=== PATIENT | female | born 1955 | race Asian ===

== ENCOUNTER 2021-01-27 15:32 | Outpatient (CLI) | payer BC | END 2021-01-27 15:33 | disposition home or self-care (01) | LOC: CSHRAD 15:32 | PROVIDERS: ATTEND Family Medicine | DX: R05.3 Chronic cough (principal); R91.8 Other nonspecific abnormal finding of lung field | CPT/HCPCS: 71046 ==

== ENCOUNTER 2021-02-05 10:12 | Outpatient (CLI) | payer BC | END 2021-02-05 10:13 | disposition home or self-care (01) | LOC: CSHRAD 10:12 | PROVIDERS: ATTEND Family Medicine | DX: J18.9 Pneumonia, unspecified organism (principal) | CPT/HCPCS: 71046 ==

== ENCOUNTER 2021-03-02 15:39 | Outpatient (CLI) | payer BC | END 2021-03-02 15:40 | disposition home or self-care (01) | LOC: CSHRAD 15:39 | PROVIDERS: ATTEND Family Medicine | DX: R93.89 Abnormal findings on diagnostic imaging of other specified body structures (principal); R91.8 Other nonspecific abnormal finding of lung field | CPT/HCPCS: 71046 ==

== ENCOUNTER 2021-03-08 13:23 | Outpatient (CLI) | payer BC | END 2021-03-08 13:24 | disposition home or self-care (01) | LOC: CSHCT 13:23 | PROVIDERS: ATTEND Family Medicine | DX: R91.8 Other nonspecific abnormal finding of lung field (principal) | CPT/HCPCS: 71260; 82565 ==

== ENCOUNTER 2021-04-20 13:32 | Outpatient (CLI) | payer BC | END 2021-04-20 13:33 | disposition home or self-care (01) | LOC: CSHMRI 13:32 | PROVIDERS: ATTEND Internal Medicine Hematology & Oncology | DX: C34.81 Malignant neoplasm of overlapping sites of right bronchus and lung (principal) | CPT/HCPCS: 70553; 82565 ==

== ENCOUNTER 2021-05-05 15:04 | Outpatient (CLI) | payer BC | END 2021-05-05 15:05 | disposition home or self-care (01) | LOC: CSHEKG 15:04 | PROVIDERS: ATTEND Internal Medicine Hematology & Oncology | DX: Z01.818 Encounter for other preprocedural examination (principal) | CPT/HCPCS: 93005; 93010 ==

== ENCOUNTER 2022-03-08 08:56 | Outpatient (CLI) | payer BC ==
[2022-03-08] MEDS ORDERED: Iopamidol 300 61% 100 ML VIAL FS ONE (10:22)
== END 2022-03-08 08:57 | disposition home or self-care (01) ==
LOC: CSHCT 08:56
PROVIDERS: ATTEND Internal Medicine Hematology & Oncology
DX: C34.81 Malignant neoplasm of overlapping sites of right bronchus and lung (principal); R19.5 Other fecal abnormalities
CPT/HCPCS: 70470; 71260; 74177; 82565

== ENCOUNTER 2023-06-05 08:13 | Outpatient (CLI) | payer BC | END 2023-06-05 08:14 | disposition home or self-care (01) | LOC: CSHCT 08:13 | PROVIDERS: ATTEND Internal Medicine Hematology & Oncology | DX: C34.81 Malignant neoplasm of overlapping sites of right bronchus and lung (principal) | CPT/HCPCS: 71260; 74177; 82565 ==